=== PATIENT | male | born 1990 | race Caucasian/White ===

== ENCOUNTER 2017-10-27 22:02 | Emergency (ER) | payer OTHER ==
[~2017-10-27] VITALS: Ht 193 cm; Wt 99.8 kg
[2017-10-27 22:09] VITALS: BP 131/78
[2017-10-28] MEDS ORDERED: LIDOCAINE 1% HCL (LOCAL ANESTH.) INJ 20ML MDV IJ ONE (00:30)
[2017-10-28] MEDS ORDERED: LIDOCAINE 2% (LOCAL ANESTH.) PF 5ml SDV ONE (05:53)
== END 2017-10-28 01:11 | disposition home or self-care (01) ==
LOC: ER 22:02
DX: S01.311A Laceration without foreign body of right ear, initial encounter (principal); Y08.89XA Assault by other specified means, initial encounter; Y93.89 Activity, other specified; Y99.8 Other external cause status; Y92.89 Other specified places as the place of occurrence of the external cause
CPT/HCPCS: 12011; 99283; J2001

== ENCOUNTER 2021-12-26 19:32 | Emergency (ER) | payer OTHER ==
[~2021-12-26] VITALS: Ht 188 cm; Wt 100.0 kg
[2021-12-26] MEDS ORDERED: ASPirin 81 mg TAB PO ONE (19:45)
[2021-12-26 20:15] LABS: Basophils # (auto) 0 10 ^3/uL (0-0.2); Basophils % (auto) 0.2 % (0.0-2.0); Eosinophils # (auto) 0 10 ^3/uL (0-0.8); Eosinophils % (auto) 0.5 % (0.0-7.0); Hematocrit 46.9 % (41.0-53.0); Hemoglobin 15.8 g/dL (13.5-17.5); Lymphocytes # (auto) 1.5 10 ^3/uL (0.4-5.4); Lymphocytes % (auto) 16.3 % (10.0-50.0); Mean Corpuscular Hemoglobin 27.6 pg (28.0-32.0); Mean Corpuscular Hgb Conc. 33.6 g/dL (32.0-36.0); Mean Corpuscular Volume 82.1 fL (80.0-100.0); Monocytes # (auto) 0.6 10 ^3/uL (0-1.3); Monocytes % (auto) 6.6 % (0.0-12.0); Neutrophils % (auto) 76.4 % (37.0-80.0); Nucleated Red Blood Cells % 0.1 %; Red Blood Cells 5.71 10^6/uL (4.5-5.90); Red Cell Distribution Width 13.2 % (11.8-14.3); White Blood Cell 9.2 10^3/uL (4.4-10.8)
[2021-12-26 20:30] LABS: INR 1.01 (0.9-1.15); Partial Thromboplastin Time 26.9 sec (24.6-33.4)
[2021-12-26 20:38] LABS: Albumin 4.4 g/dL (3.4-5.0); Calcium 8.9 mg/dL (8.5-10.1); Magnesium 2.1 mg/dL (1.6-2.6); Potassium 3.6 mmol/L (3.5-5.1)
[2021-12-26 20:41] LABS: BUN/Creatinine Ratio 12.4; Bilirubin, Total 0.5 mg/dL (0.2-1.0); Total Protein 7.5 g/dL (6.4-8.2)
[2021-12-26] MEDS ORDERED: MORPHINE SULFATE 4 MG/ML SYR/VIAL IV ONE (21:00)
[2021-12-26] MEDS ORDERED: ONDANSETRON HCL 4 MG/2 ML VIAL IV ONE (21:00)
[2021-12-26 22:49] LABS: Acetaminophen < 2.0 ug/mL (10-30); Salicylate 1.7 mg/dL (2.8-20.0)
[2021-12-27] VITALS: BP 126/84
[2021-12-27] MEDS ORDERED: IOHEXOL 350 MG/ML 100ML IJ ONE (00:15)
== END 2021-12-27 00:30 | disposition short-term general hospital (02) ==
LOC: EDBD 19:32 → ER 19:34 → EEVIPCON 19:34 → ER 12-27 00:30
DX: R55 Syncope and collapse (principal); I47.1 Supraventricular tachycardia; F17.290 Nicotine dependence, other tobacco product, uncomplicated; Z20.822 Contact with and (suspected) exposure to COVID-19
CPT/HCPCS: 36415; 70450; 71045; 71275; 80053; 80329; 82962; 83735; 83880; 84484; 85025; 85379; 85610; 85730; 87426; 93005; 96374; 96375; 99285; J2270; J2405; Q9967